=== PATIENT | male | born 1995 | race Caucasian/White ===

== ENCOUNTER 2018-05-12 18:03 | Emergency (ER) | payer OTHER | END 2018-05-12 22:06 | disposition home or self-care (01) | LOC: M ED 18:03 | DX: S99.912A Unspecified injury of left ankle, initial encounter (principal); R93.7 Abnormal findings on diagnostic imaging of other parts of musculoskeletal system; X50.1XXA Overexertion from prolonged static or awkward postures, initial encounter; Y92.138 Other place on military base as the place of occurrence of the external cause; Y93.67 Activity, basketball | CPT/HCPCS: 73610 ==